=== PATIENT | female | born 1995 | race African-American/Black ===

== ENCOUNTER 2016-09-05 01:45 | Emergency (ER) | payer SELFPAY ==
[~2016-09-05 01:45] MED LIST: MEDR150D3 IM; NAPR500T PO; PRED20TA PO; TRAM-29 PO; [UNRECOGNIZED DRUG - CODE] PO
[2016-09-05 01:56] VITALS: BP 142/73
[2016-09-05] MEDS ORDERED: ALBUTEROL SULFATE 8GM INHALER. INH ONE (02:30)
--- NOTE | 2016-09-05 05:42 | ED.ADGEN ---
Past History Past Medical History: Asthma Past Surgical History: No Surgical History Smoking: Non-smoker Alcohol Use: None Drug Use: None Adult General HPI HPI Patient is a 21-year-old female presents emergency department complaining of a four-day history of nonproductive cough. She has had a few episodes of posttussive emesis. She also complains of congestion. She denies any fever or chills. Has been taking nothing for her symptoms. Review of Systems Review of Systems Constitutional: Denies fever or chills [] Eyes: Denies change in visual acuity, redness, or eye pain [] HENT: Denies nasal congestion or sore throat [] Respiratory: Denies cough or shortness of breath [] Cardiovascular: No additional information not addressed in HPI [] GI: Denies abdominal pain, nausea, vomiting, bloody stools or diarrhea [] : Denies dysuria or hematuria [] Musculoskeletal: Denies back pain or joint pain [] Integument: Denies rash or skin lesions [] Neurologic: Denies headache, focal weakness or sensory changes [] Endocrine: Denies polyuria or polydipsia [] Current Medications Current Medications Current Medications Medications (Trade) Dose Ordered Sig/Jose Start Time Stop Time Status Last Admin Dose Admin Albuterol Sulfate (Ventolin Hfa) 1 puff 1X ONCE 09/05/16 02:30 09/05/16 02:30 DC 09/05/16 02:12 1 PUFF Allergies Allergies Allergies Coded Allergies Type Severity Reaction Last Updated Verified shellfish derived Allergy Intermediate 11/16/13 Yes Physical Exam Physical Exam Constitutional: Well developed, well nourished, no acute distress, non-toxic appearance. [] HENT: Normocephalic, atraumatic, bilateral external ears normal, oropharynx moist, no oral exudates, nose normal. [] Eyes: PERRLA, EOMI, conjunctiva normal, no discharge. [] Neck: Normal range of motion, no tenderness, supple, no stridor. [] Cardiovascular:Heart rate regular rhythm, no murmur [] Lungs & Thorax: Bilateral breath sounds clear to auscultation [] Abdomen: Bowel sounds normal, soft, no tenderness, no masses, no pulsatile masses. [] Skin: Warm, dry, no erythema, no rash. [] Back: No tenderness, no CVA tenderness. [] Extremities: No tenderness, no cyanosis, no clubbing, ROM intact, no edema. [] Neurologic: Alert and oriented X 3, normal motor function, normal sensory function, no focal deficits noted. [] Psychologic: Affect normal, judgement normal, mood normal. [] Current Patient Data Vital Signs Vital Signs Date Time Temp Pulse Resp B/P Pulse Ox O2 Delivery O2 Flow Rate FiO2 09/05/16 01:56 98.3 90 20 98 Room Air EKG EKG [] Radiology/Procedures Radiology/Procedures [] Course & Med Decision Making Course & Med Decision Making Pertinent Labs and Imaging studies reviewed. (See chart for details) Patient had an upper respiratory infection. She was counseled on supportive care measures. Given a refill for her inhaler. [] Final Impression Final Impression Upper respiratory infection [] Problems: Dragon Disclaimer Dragon Disclaimer This chart was dictated in whole or in part using Voice Recognition software in a busy, high-work load, and often noisy Emergency Department environment. It may contain unintended and wholly unrecognized errors or omissions. SUZI PANDEY MD Sep 05, 2016 05:42
== END 2016-09-05 02:17 | disposition home or self-care (01) ==
LOC: ER 01:45
DX: J06.9 Acute upper respiratory infection, unspecified (principal); J45.909 Unspecified asthma, uncomplicated; Z91.013 Allergy to seafood
CPT/HCPCS: 94640; 99283; J7613

== ENCOUNTER 2018-01-21 15:30 | Emergency (ER) | payer SELFPAY ==
[~2018-01-21] VITALS: Ht 162.6 cm; Wt 93.0 kg
[~2018-01-21 15:30] MED LIST changes: +NAPR-683 PO; -NAPR500T PO; -TRAM-29 PO; +TRAM-48 PO
--- NOTE | 2018-01-21 15:49 | PHYS DOC ---
Past History Past Medical History: Asthma Past Surgical History: No Surgical History Smoking: Non-smoker Alcohol Use: None Drug Use: None Adult General Chief Complaint Chief Complaint: LOWER EXTREMITY EDEMA HPI HPI Patient is a 22-year-old female who presents to the emergency department for 2 weeks' duration of bilateral lower extremity swelling, primarily in her ankles. She has not had any calf pain or swelling proximal to her ankles. She denies any chest pain or shortness of breath. She states her LMP was several months ago she is on Depo-Provera and she has not easily been . She denies any recent travel, surgery, or immobilization. She denies any pleuritic chest pain. She denies any dizziness, lightheadedness, or fever. Her swelling and discomfort in her ankles bilaterally. There are no alleviating, or exacerbating factors to her symptoms. She denies any recent tick bites or other exposures. She denies any recent injuries. Review of Systems Review of Systems Constitutional: Denies fever or chills [] Eyes: Denies change in visual acuity, redness, or eye pain [] HENT: Denies nasal congestion or sore throat [] Respiratory: Denies cough or shortness of breath [] Cardiovascular: The patient denies any shortness of breath, chest pain, palpitations, or orthopnea [] GI: Denies abdominal pain, nausea, vomiting, bloody stools or diarrhea [] : Denies dysuria or hematuria [] Musculoskeletal: Denies back pain or joint pain [] Integument: Denies rash or skin lesions [] Neurologic: Denies headache, focal weakness or sensory changes [] Endocrine: Denies polyuria or polydipsia [] All other systems were reviewed and found to be within normal limits, except as documented in this note. Allergies Allergies Allergies Coded Allergies Type Severity Reaction Last Updated Verified shellfish derived Allergy Intermediate 11/16/13 Yes Physical Exam Physical Exam PHYSICAL EXAM: CONSTITUTIONAL: Well developed, well nourished HEAD: normocephalic, atraumatic EENT: PERRL, EOMI. Conjunctivae normal color, sclerae non-icteric; moist mucous membranes. NECK: Supple, non-tender; no meningismus. LUNGS: Lungs CTA, breathing even and unlabored. Normal air movement. HEART: Regular rate and rhythm, no murmur CHEST: No deformity; non-tender ABDOMEN: The abdomen is soft, and non-tender, no masses or bruits. EXTREM: Normal ROM; no deformity, no calf tenderness. Normal pulses palpable in all extremities. There is trace nonpitting bilateral pedal edema, primarily in the ankles bilaterally. There is no warmth or erythema. SKIN: No rash; no diaphoresis NEURO: Alert; normal speech and cognition; CN's grossly intact; strength grossly intact without focal deficit. BACK: No CVA TTP. EKG EKG [Normal sinus rhythm with a normal rate, normal axis, normal intervals, there are no acute ischemic ST/T changes.] Radiology/Procedures Radiology/Procedures [] Course & Med Decision Making Course & Med Decision Making Pertinent Labs and Imaging studies reviewed. (See chart for details) [5:50 PM: Patient remains stable. I discussed test results, the need for close follow-up, and return precautions. I discussed using compression stockings and elevation. A short course of Lasix will be given. The importance of close follow -up for further outpatient evaluation was stressed] Dragon Disclaimer Dragon Disclaimer This electronic medical record was generated, in whole or in part, using a voice recognition dictation system. Departure Departure: Impression: Primary Impression: Pedal edema Disposition: HOME, SELF-CARE Condition: STABLE Referrals: PCP,NO (PCP) Patient Instructions: Edema Scripts Furosemide (LASIX) 40 Mg Tablet 40 MG PO DAILY for 10 Days, #10 TAB Prov: SUZI COLBERT MD 01/21/18 SUZI COLBERT MD Jan 21, 2018 15:48
[2018-01-21 16:23] LABS: PREG TEST PT QUAL NEGATIVE (NEG)
--- NOTE | 2018-01-21 16:23 | EKG ---
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
--- NOTE | 2018-01-21 16:45 | RAD ---
Chest, PA and Lateral: Technique: PA and lateral views of the chest were obtained. History: Cough. Comparison: None. Findings: The heart and pulmonary vasculature appear within normal limits. The lungs are clear. The pleural margins are clear. Impression: No acute chest process is seen. Electronically signed by: David Velarde MD (01/21/2018 4:41 PM) [id number]
[2018-01-21 17:31] LABS: BASO % 1 % (0-3); EOS # 0.6 x10^3/uL (0.0-0.7); EOS % 7 % (0-3); HEMATOCRIT 38.7 % (36.0-47.0); HEMOGLOBIN 12.9 g/dL (12.0-15.5); LYMPH # 3.1 x10^3/uL (1.0-4.8); LYMPH % 38 % (24-48); MEAN CORPUSCULAR HEMOGLOBIN 28 pg (25-35); MEAN CORPUSCULAR HGB CONC 33 g/dL (31-37); MEAN CORPUSCULAR VOLUME 83 fL (79-100); MONO # 0.7 x10^3/uL (0.0-1.1); MONO % 8 % (0-9); NEUT # 3.7 x10^3uL (1.8-7.7); NEUT % 46 % (31-73); PLATELET COUNT 282 x10^3/uL (140-400); RED BLOOD COUNT 4.68 x10^6/uL (3.50-5.40); RED CELL DISTRIBUTION WIDTH 13.3 % (11.5-14.5); WHITE BLOOD COUNT 8.1 x10^3/uL (4.0-11.0)
[2018-01-21 17:49] LABS: ALBUMIN 3.8 g/dL (3.4-5.0); ALBUMIN/GLOBULIN RATIO 1.1 (1.0-1.7); CREATININE 0.8 mg/dL (0.6-1.0); GFR 106.6; POTASSIUM 3.6 mmol/L (3.5-5.1); TOTAL BILIRUBIN 0.4 mg/dL (0.2-1.0); TOTAL PROTEIN 7.4 g/dL (6.4-8.2)
[2018-01-21] MEDS ORDERED: FURO-68 PO (17:53)
[2018-01-21 18:00] VITALS: BP 141/62
== END 2018-01-21 18:05 | disposition home or self-care (01) ==
LOC: ER 15:30
DX: R60.0 Localized edema (principal); J45.909 Unspecified asthma, uncomplicated; Z91.013 Allergy to seafood
CPT/HCPCS: 36415; 71046; 80053; 83880; 84703; 85025; 85379; 93005; 99285-25

== ENCOUNTER 2018-08-22 11:12 | Emergency (ER) | payer SELFPAY ==
[~2018-08-22] VITALS: Ht 162.6 cm; Wt 88.9 kg
[~2018-08-22 11:12] MED LIST changes: +FURO-68 PO
[2018-08-22] MEDS ORDERED: IV NORMAL SALINE 1,000ML 1,000 ML IV SCH (11:30)
[2018-08-22] MEDS ORDERED: ONDANSETRON PF 4 MG/2 ML VIAL. IV ONE (11:30)
[2018-08-22 12:16] LABS: BASO % 1 % (0-3); EOS # 0.2 x10^3/uL (0.0-0.7); EOS % 3 % (0-3); HEMOGLOBIN 12.8 g/dL (12.0-15.5); LYMPH # 1.3 x10^3/uL (1.0-4.8); LYMPH % 20 % (24-48); MEAN CORPUSCULAR HEMOGLOBIN 28 pg (25-35); MEAN CORPUSCULAR HGB CONC 34 g/dL (31-37); MEAN CORPUSCULAR VOLUME 83 fL (79-100); MONO # 0.6 x10^3/uL (0.0-1.1); MONO % 10 % (0-9); NEUT # 4.4 x10^3uL (1.8-7.7); NEUT % 67 % (31-73); PLATELET COUNT 286 x10^3/uL (140-400); RED BLOOD COUNT 4.56 x10^6/uL (3.50-5.40); WHITE BLOOD COUNT 6.6 x10^3/uL (4.0-11.0)
--- NOTE | 2018-08-22 12:37 | PHYS DOC ---
Past History Past Medical History: Asthma Past Surgical History: No Surgical History Smoking: Non-smoker Alcohol Use: None Drug Use: None Adult General Chief Complaint Chief Complaint: Nausea and vomiting and diarrhea HPI HPI Patient is a 23 year old female who presents with appearing of nausea and vomiting and diarrhea since this morning. Patient complaining of 3 episodes of vomiting and 5 episodes of diarrhea since 7:30 today with cramping abdominal pain during episodes of diarrhea and vomiting. Patient also complaining of headache and rated her pain 10 over 10 without history of migraine headache. Patient denies sick contact, urinary symptom, fever and chills. Review of Systems Review of Systems Constitutional: Denies fever or chills [] Eyes: Denies change in visual acuity, redness, or eye pain [] HENT: Denies nasal congestion or sore throat [] Respiratory: Denies cough or shortness of breath [] Cardiovascular: No additional information not addressed in HPI [] GI: Reports abdominal pain, nausea, vomiting, diarrhea [] : Denies dysuria or hematuria [] Musculoskeletal: Denies back pain or joint pain [] Integument: Denies rash or skin lesions [] Neurologic: Reports headache, denies focal weakness or sensory changes [] Endocrine: Denies polyuria or polydipsia [] All other systems were reviewed and found to be within normal limits, except as documented in this note. Current Medications Current Medications Current Medications Medications (Trade) Dose Ordered Sig/Jose Start Time Stop Time Status Last Admin Dose Admin Ondansetron HCl (Zofran) 4 mg 1X ONCE 08/22/18 11:30 08/22/18 11:33 DC 08/22/18 11:57 4 MG Sodium Chloride 1,000 ml @ 1,000 mls/hr Q1H 08/22/18 11:30 08/22/18 12:29 DC 08/22/18 11:57 1,000 MLS/HR Allergies Allergies Allergies Coded Allergies Type Severity Reaction Last Updated Verified shellfish derived Allergy Intermediate 11/16/13 Yes Physical Exam Physical Exam Constitutional: Well developed, well nourished, mild distress, non-toxic appearance. [] HENT: Normocephalic, atraumatic, oropharynx dry, no oral exudates, nose normal. [] Eyes: PERRLA, EOMI, conjunctiva normal, no discharge. [] Neck: Normal range of motion, no tenderness, supple, no stridor, no meningeal sign. [] Cardiovascular:Heart rate regular rhythm, no murmur [] Lungs & Thorax: Bilateral breath sounds clear to auscultation [] Abdomen: Bowel sounds normal, soft, no tenderness, no masses, no pulsatile masses. [] Skin: Warm, dry, no erythema, no rash. [] Back: No tenderness, no CVA tenderness. [] Extremities: No tenderness, no cyanosis, no clubbing, ROM intact, no edema. [] Neurologic: Alert and oriented X 3, normal motor function, normal sensory function, no focal deficits noted. [] Psychologic: Affect normal, judgement normal, mood normal. [] Current Patient Data Lab Results Laboratory Tests Test 08/22/18 11:50 White Blood Count 6.6 x10^3/uL (4.0-11.0) Red Blood Count 4.56 x10^6/uL (3.50-5.40) Hemoglobin 12.8 g/dL (12.0-15.5) Hematocrit 38.0 % (36.0-47.0) Mean Corpuscular Volume 83 fL (79-100) Mean Corpuscular Hemoglobin 28 pg (25-35) Mean Corpuscular Hemoglobin Concent 34 g/dL (31-37) Red Cell Distribution Width 14.0 % (11.5-14.5) Platelet Count 286 x10^3/uL (140-400) Neutrophils (%) (Auto) 67 % (31-73) Lymphocytes (%) (Auto) 20 % (24-48) L Monocytes (%) (Auto) 10 % (0-9) H Eosinophils (%) (Auto) 3 % (0-3) Basophils (%) (Auto) 1 % (0-3) Neutrophils # (Auto) 4.4 x10^3uL (1.8-7.7) Lymphocytes # (Auto) 1.3 x10^3/uL (1.0-4.8) Monocytes # (Auto) 0.6 x10^3/uL (0.0-1.1) Eosinophils # (Auto) 0.2 x10^3/uL (0.0-0.7) Basophils # (Auto) 0.0 x10^3/uL (0.0-0.2) EKG EKG [] Radiology/Procedures Radiology/Procedures [] Course & Med Decision Making Course & Med Decision Making Pertinent Labs reviewed. (See chart for details) discharge: I've spoken with the patient and/or caregivers. I've explained the patient's condition, diagnosis and treatment plan based on information available to me at this time. I've answered the patient's and/or caregivers questions and addressed any concerns. The patient and/or caregivers have a good understanding the patient's diagnosis, condition and treatment plan as can be expected at this point. Vital signs have been stabilized. The patient's condition is stable for discharge from the emergency department. The patient will pursue further outpatient evaluation with her primary care provider or other designated consulting physician as outlined in the discharge instructions. Patient and/or caregivers are agreeable to this plan of care and follow-up instructions have been explained in detail. The patient and/or caregivers have received these instructions in written format and expressed understanding of these discharge instructions. The patient and her caregivers are aware that if any significant change in condition or worsening of symptoms should prompt him to immediately return to this of the closest emergency department. If an emergent department is not readily available I would encourage him to call 911. Brian Disclaimer Dragon Disclaimer This electronic medical record was generated, in whole or in part, using a voice recognition dictation system. Departure Departure: Impression: Primary Impression: Acute gastroenteritis Additional Impressions: Urinary tract infection Headache Disposition: HOME, SELF-CARE (at 1345) Condition: IMPROVED Referrals: PCP,NO (PCP) Patient Instructions: General Headache Without Cause, Urinary Tract Infection, Viral Gastroenteritis Additional Instructions: Drink plenty of liquids Follow-up with your primary care physician in 3-5 days Return to ER if not getting better Do not take solid foods today Scripts Ondansetron Hcl (ZOFRAN) 4 Mg Tablet 1 TAB PO Q6HRS for nausea and vomiting, #12 TAB Prov: TAN ANTHONY MD 08/22/18 Naproxen (NAPROSYN) 500 Mg Tablet 500 MG PO BID for pain, #14 TAB Prov: TAN ANTHONY MD 08/22/18 Ciprofloxacin Hcl (CIPRO) 250 Mg Tablet 1 TAB PO BID for urinary tract infection, #6 TAB Prov: TAN ANTHONY MD 08/22/18 Problem Qualifiers TAN ANTHONY MD Aug 22, 2018 12:37
[2018-08-22 12:45] LABS: BACTERIA,URINE MOD /HPF (0-FEW); BILIRUBIN,URINE NEG (NEG); CLARITY,URINE TURBID; COLOR,URINE YELLOW; GLUCOSE,URINE NEG (NEG); NITRITE,URINE NEG (NEG); UROBILINOGEN,URINE 1 mg/dL (0.2 mg/dL); WBC,URINE >40 /HPF (0-4)
[2018-08-22 12:46] LABS: SQUAMOUS EPITHELIAL CELL,UR MOD /LPF
[2018-08-22 12:47] LABS: U PREG PATIENT NEGATIVE (NEG)
[2018-08-22 13:32] LABS: ALBUMIN 3.2 g/dL (3.4-5.0); ALBUMIN/GLOBULIN RATIO 0.9 (1.0-1.7); CALCIUM 8.2 mg/dL (8.5-10.1); CREATININE 0.8 mg/dL (0.6-1.0); GFR 105.8; POTASSIUM 3.9 mmol/L (3.5-5.1); TOTAL BILIRUBIN 0.3 mg/dL (0.2-1.0); TOTAL PROTEIN 6.8 g/dL (6.4-8.2)
[2018-08-22] MEDS ORDERED: CIPR250T30 PO (13:41)
[2018-08-22] MEDS ORDERED: NAPR-683 PO (13:41)
[2018-08-22] MEDS ORDERED: ONDA4TAB7 PO (13:41)
[2018-08-22] MEDS ORDERED: IV NORMAL SALINE 50ML 50 ML ONE (13:43)
[2018-08-22] MEDS ORDERED: cefTRIAXone SODIUM 1 GM VIAL IV ONE (13:43)
[2018-08-22] MEDS ORDERED: KETOROLAC 30 MG/ML VIAL. IV ONE (13:45)
[2018-08-22 14:30] VITALS: BP 153/96
== END 2018-08-22 14:31 | disposition home or self-care (01) ==
LOC: ER 11:12
DX: K52.9 Noninfective gastroenteritis and colitis, unspecified (principal); N39.0 Urinary tract infection, site not specified; R51 Headache; J45.909 Unspecified asthma, uncomplicated; Z91.013 Allergy to seafood
CPT/HCPCS: 36415; 80053; 81001; 81025; 83690; 85025; 87086; 96361; 96374; 96375; 99283; J0696; J1885; J2405; J7030

== ENCOUNTER 2020-08-06 13:47 | Emergency (ER) | payer SELFPAY ==
[~2020-08-06] VITALS: Ht 160 cm; Wt 88.7 kg
[2020-08-06 13:47] VITALS: BP 127/80
[~2020-08-06 13:47] MED LIST changes: +CIPR250T30 PO; +ONDA4TAB7 PO
--- NOTE | 2020-08-06 13:53 | PHYS DOC ---
Past History Past Medical History: Asthma Past Surgical History: No Surgical History Smoking: Non-smoker Alcohol Use: None Drug Use: None Adult General Chief Complaint Chief Complaint: ABDOMINAL PAIN [facility] HPI Patient is a 25-year-old female who presents via EMS for abdominal pain. Was reportedly found outside her residence by local Police Department and was complaining of abdominal pain when EMS was called to scene for evaluation. Nicholas lema was found to be tachycardic but otherwise hemodynamically stable and in obvious pain given epigastric abdominal pain. Because of this, patient was subsequently transported to our ER for evaluation. On arrival, patient remains tachycardic. Admits epigastric and periumbilical pain which is consistent with prior episodes of acute gastritis. She has known ulcers and states pain feels similar to prior episodes. She also admits radiating left flank pain into her groin and dysuria which is new. Denies any prior abdominal surgeries. No recent fever, febrile illness, known sick contacts or travel, no COVID-19 exposure, no chest pain, shortness of breath, changes in bowel function, changes in motor or sensory function. Patient does admit to drinking " not even 1 full wine cooler" last night Further history elicited after patient's anxiety improved. Reports she was in fact getting pulled over by local Police Department when she got into a verbal altercation with officer given the fact that she has active warrant out for her arrest. She reports after said verbal argument she started experiencing abdominal pain, states she often has" stomach spasms" and other abdominal issues after such altercations. Patient is asking us to not disclose any identifying information to police department such as her name and birthdate Review of Systems Review of Systems Fourteen body systems of review of systems have been reviewed. See HPI for pertinent positives and negative responses, other schwarz all other systems are negative, non-pertinent or non-contributory Allergies Allergies Allergies Coded Allergies Type Severity Reaction Last Updated Verified shellfish derived Allergy Intermediate 11/16/13 Yes Physical Exam Physical Exam Constitutional: Well developed, well nourished, moderate distress due to pain, non-toxic appearance. Poor hygiene, covered in leaves HENT: Normocephalic, atraumatic, bilateral external ears normal, oropharynx moist, no oral exudates, nose normal. Eyes: PERRLA, EOMI, conjunctiva normal, no discharge. Neck: Normal range of motion, no tenderness, supple, no stridor. Cardiovascular: Heart rate tachycardic, sinus rhythm, no murmurs rubs or gallops Lungs & Thorax: Bilateral breath sounds clear to auscultation Abdomen: Bowel sounds normal, soft, generalized tenderness most focal to epigastric area without guarding or rebound, no masses, no pulsatile masses. Nonsurgical abdomen, no peritoneal signs Skin: Warm, dry, no erythema, no rash. Back: No tenderness, no CVA tenderness. Extremities: No tenderness, no cyanosis, no clubbing, ROM intact, no edema. Neurologic: Alert and oriented X 3, grossly normal motor & sensory function, no focal deficits noted. Psychologic: Anxious affect, judgement normal, mood normal. EKG EKG EKG ordered and interpreted by myself at 1417 hrs. as sinus rhythm at 93 bpm, unremarkable intervals, no axis deviation, incomplete right bundle branch block, no ischemic findings, no STEMI Radiology/Procedures Radiology/Procedures [] Heart Score HEART Score for Chest Pain: HEART Score for Chest Pain Response (Comments) Value History Slighlty/Non-Suspicious 0 ECG Normal 0 Age < 45 0 Risk Factors 1 or 2 Risk Factors 1 Troponin < Normal Limit 0 Total 1 Risk Factors: Risk Factors: DM, Current or recent (<one month) smoker, HTN, HLP, family history of CAD, obesity. Risk Scores: Risk Factors: DM, Current or recent (<one month) smoker, HTN, HLP, family history of CAD, obesity. Course & Med Decision Making Course & Med Decision Making Discussed with the patient all findings and diagnostic testing. I discussed most likely diagnosis of gastritis versus other atypical nonemergent abdominal pain that came on as a result of verbal altercation with police officers. In addition, patient found to be hypokalemic, she was given potassium supplementation today and will be prescribed short-term potassium supplementation and recommendations for laboratory redraw in outpatient setting with PCP. I stressed need for close outpatient follow-up to review today's ER visit. Strict return precautions were also discussed at length with good understanding by patient. Patient voiced understanding and agreement with the plan. Patient knows to come back for repeat evaluation if concerning signs or symptoms present prior to outpatient follow-up. Hemodynamically stable, ambulatory and well-appearing at time of disposition. Dragon Disclaimer Dragon Disclaimer This electronic medical record was generated, in whole or in part, using a voice recognition dictation system. Departure Departure: Impression: Primary Impression: Nonspecific abdominal pain Disposition: 01 DC HOME SELF CARE/HOMELESS Condition: IMPROVED Referrals: PCP,CLAU (PCP) Patient Instructions: Abdominal Pain (Nonspecific), Gastritis, Adult Additional Instructions: You have been evaluated in the Emergency Department today for abdominal pain. Your evaluation was not suggestive of any emergent condition requiring medical intervention at this time. However, some abdominal problems make take more time to appear. Therefore, it is important for you to watch for any new symptoms or worsening of your current condition. This is likely an exacerbation of your gastritis. I am represcribing Protonix medication which you are to take daily. You have taken in the past with good results As discussed, please use attached list of resources to contact primary care physician of your liking to establish care. You will need repeat evaluation of your abdomen in addition to repeat examination and laboratory draw to monitor your potassium level which was found to be low during your ER visit today. Please take prescribed proton pump inhibitor for your gastritis and discussed need for ongoing management with this in outpatient setting. Return to the Emergency Department if you experience worsening pain, persistent fevers greater than 100.4, recurrent vomiting, blood in vomit, blood in stool, dark tarry stool, chest pain, difficulty breathing, or any other concerning symptoms. Scripts Pantoprazole Sodium (PROTONIX) 40 Mg Tablet.dr 1 TAB PO DAILY for GASTRITIS, #30 TAB 5 Refills Prov: ALEXANDRIA BACON DO 08/06/20 Potassium Chloride (POTASSIUM CHLORIDE ) 20 Meq Tablet.er 20 MEQ PO DAILY for SUPPLEMENT for 7 Days, #7 TAB Prov: ALEXANDRIA BACON DO 08/06/20 ALEXANDRIA BACON DO Aug 06, 2020 13:53
[2020-08-06] MEDS ORDERED: PANTOPRAZOLE IV 40 MG VIAL. IVP ONE (14:00)
[2020-08-06] MEDS ORDERED: IV NORMAL SALINE 1,000ML 1,000 ML IV SCH (14:00)
[2020-08-06 14:11] LABS: BASO % 0 % (0-3); EOS # 0.1 x10^3/uL (0.0-0.7); EOS % 1 % (0-3); HEMATOCRIT 33.9 % (36.0-47.0); HEMOGLOBIN 10.7 g/dL (12.0-15.5); LYMPH # 2.5 x10^3/uL (1.0-4.8); LYMPH % 25 % (24-48); MEAN CORPUSCULAR HEMOGLOBIN 25 pg (25-35); MEAN CORPUSCULAR HGB CONC 32 g/dL (31-37); MEAN CORPUSCULAR VOLUME 79 fL (79-100); MONO # 0.7 x10^3/uL (0.0-1.1); MONO % 7 % (0-9); NEUT # 6.9 x10^3uL (1.8-7.7); NEUT % 67 % (31-73); PLATELET COUNT 304 x10^3/uL (140-400); RED BLOOD COUNT 4.27 x10^6/uL (3.50-5.40); RED CELL DISTRIBUTION WIDTH 18.2 % (11.5-14.5); WHITE BLOOD COUNT 10.4 x10^3/uL (4.0-11.0)
[2020-08-06] MEDS ORDERED: MORPHINE SULFATE 4 MG/ML DISP.SYRIN. ONE (14:12)
[2020-08-06] MEDS ORDERED: MORPHINE SULFATE 4 MG/ML DISP.SYRIN. IV ONE (14:15)
[2020-08-06 14:26] LABS: ALBUMIN 3.6 g/dL (3.4-5.0); CALCIUM 9.2 mg/dL (8.5-10.1); CREATININE 1.1 mg/dL (0.6-1.0); GFR 72.1; TOTAL BILIRUBIN 0.3 mg/dL (0.2-1.0); TOTAL PROTEIN 7.3 g/dL (6.4-8.2)
[2020-08-06 14:28] LABS: POTASSIUM 2.7 mmol/L (3.5-5.1)
[2020-08-06] MEDS ORDERED: POTASSIUM CHLORIDE 20 MEQ TABLET.ER. PO ONE (14:30)
[2020-08-06] MEDS ORDERED: PANT40TA3 PO (15:27)
[2020-08-06] MEDS ORDERED: POTA20TA4 PO (15:27)
[2020-08-06 15:29] LABS: AMPHETAMINE/METHAMPHETAMINE POS (NEG); BARBITURATES NEG (NEG); BENZODIAZEPINES NEG (NEG); CANNABINOIDS NEG (NEG); COCAINE NEG (NEG); METHADONE NEG (NEG); OPIATES POS (NEG); PHENCYCLIDINE NEG (NEG)
[2020-08-06 15:36] LABS: BACTERIA,URINE MOD /HPF (0-FEW); BILIRUBIN,URINE NEG (NEG); CLARITY,URINE HAZY; COLOR,URINE YELLOW; GLUCOSE,URINE NEG (NEG); NITRITE,URINE POS (NEG); UROBILINOGEN,URINE 0.2 mg/dL (0.2 mg/dL)
[2020-08-06 15:37] LABS: SQUAMOUS EPITHELIAL CELL,UR MOD /LPF
[2020-08-06] MEDS ORDERED: NITR100C62 PO (16:11)
[2020-08-06] MEDS ORDERED: NITROFURANTOIN MONOHYD/M-CRYST 100 MG CAPSULE. PO ONE (16:15)
--- NOTE | 2020-08-06 16:23 | EKG ---
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
== END 2020-08-06 16:48 | disposition home or self-care (01) ==
LOC: ER 13:47
DX: R10.13 Epigastric pain (principal); R10.33 Periumbilical pain; R00.0 Tachycardia, unspecified; J45.909 Unspecified asthma, uncomplicated; Z91.013 Allergy to seafood
CPT/HCPCS: 36415; 80053; 80307; 81001; 81025; 82550; 83690; 83735; 84484; 85025; 87086; 93005; 96361; 96374; 96375; 99284; C9113; J2060; J2270; J7030

== ENCOUNTER 2020-09-17 12:51 | Emergency (ER) | payer SELFPAY ==
[~2020-09-17] VITALS: Ht 160 cm; Wt 97.5 kg
[~2020-09-17 12:51] MED LIST changes: +NITR100C62 PO; +PANT40TA3 PO; +POTA20TA4 PO
--- NOTE | 2020-09-17 13:42 | RAD ---
EXAM: Chest, 2 views. HISTORY: Syncope. COMPARISON: 01/21/2018. FINDINGS: 2 views of the chest are obtained. There is no infiltrate, pleural effusion or pneumothorax . The heart is normal in size. IMPRESSION: No acute pulmonary finding. Electronically signed by: Magaly Howard MD (09/17/2020 1:33 PM) [facility]
[2020-09-17 13:45] VITALS: BP 130/88
[2020-09-17] MEDS ORDERED: SUMAtriptan SUCC 6 MG/0.5 ML VIAL SQ ONE (13:45)
--- NOTE | 2020-09-17 14:14 | RAD ---
CT HEAD INDICATION: headache, syncope COMPARISON: 11/16/2013 Exposure: One or more of the following individualized dose reduction techniques were utilized for thi s examination: 1. Automated exposure control 2. Adjustment of the mA and/or kV according to patient size 3. Use of iterative reconstruction technique TECHNIQUE: 5 mm contiguous axial images were obtained from the skull base to the vertex in both bone and soft tissue algorithm. FINDINGS: No abnormal attenuation within the brain parenchyma. No evidence of acute intracranial hemorrhage. No extra-axial fluid collections. No mass effect or midline shift. Ventricular size is appropriate. Basal cisterns are patent. No fractures identified.Beckford-white differentiation is preserved.Globes and orbits are within normal l imits. Paranasal sinuses and mastoid air cells are clear. IMPRESSION: No acute intracranial findings. Electronically signed by: David Velarde MD (09/17/2020 2:11 PM) [id number]
--- NOTE | 2020-09-17 14:14 | PHYS DOC ---
Past History Past Medical History: Asthma, GERD, Hypertension, Ovarian Cyst Past Surgical History: No Surgical History Smoking: Non-smoker Alcohol Use: Occasionally Drug Use: None Adult General Chief Complaint Chief Complaint: FATIGUE HPI HPI Patient is a 25-year-old female with past medical history of hypertension and presents to the emergency room complaining of 40 days of global headache that is worse in the front. She states that she thought this was due to high blood pressure but was surprised when her blood pressure is normal upon arrival. She states that the pain is worse in the front of her head. She has not had any nausea or vomiting. She felt like she was in a pass out earlier today but did not pass out. She denies any shortness of breath, cough, URI symptoms, fever, chills, sweats. She states she typically only gets headaches with high blood pressure. She has not been taking her medications as she does not have insuranc e. Review of Systems Review of Systems Complete ROS is negative unless otherwise documented in HPI Current Medications Current Medications Current Medications Medications (Trade) Dose Ordered Sig/Jose Start Time Stop Time Status Last Admin Dose Admin Sumatriptan Succinate (Imitrex) 6 mg 1X ONCE 09/17/20 13:45 09/17/20 13:46 DC 09/17/20 13:45 6 MG Allergies Allergies Allergies Coded Allergies Type Severity Reaction Last Updated Verified shellfish derived Allergy Intermediate 11/16/13 Yes Physical Exam Physical Exam General: Awake, alert, NAD. Well Nourished, well hydrated. Cooperative HEENT: Atraumatic, EOMI, PERRL, airway patent, moist oral mucosa Neck: Supple, trachea midline Respiratory: CTA bilaterally, normal effort, no wheezing/crackles CV: RRR, no murmur, cap refill <2 GI: Soft, nondistended, nontender, no masses MSK: No obvious deformities Skin: Warm, dry, intact Neuro: A&O x3, speech NL, 5/5 strength in BUE/BLE distally and proximally, CN 2- 12 intact, cerebellar testing normal Psych: Normal affect, normal mood, not suicidal or homicidal Current Patient Data Vital Signs Vital Signs Date Time Temp Pulse Resp B/P (MAP) Pulse Ox O2 Delivery O2 Flow Rate FiO2 09/17/20 13:45 95 16 130/88 (102) 99 Room Air 09/17/20 12:53 98.7 Lab Results Laboratory Tests Test 09/17/20 13:11 POC Urine HCG, Qualitative hcg negative (Negative) EKG EKG [] Radiology/Procedures Radiology/Procedures [] Heart Score Risk Factors: Risk Factors: DM, Current or recent (<one month) smoker, HTN, HLP, family history of CAD, obesity. Risk Scores: Risk Factors: DM, Current or recent (<one month) smoker, HTN, HLP, family history of CAD, obesity. Course & Med Decision Making Course & Med Decision Making Pertinent Labs and Imaging studies reviewed. (See chart for details) Patient is a 25-year-old female who presents to the emergency room after a presyncopal episode. She has had a headache for the last 4 days. EKG is normal. test is negative. We will do a CT head and chest x-ray to rule out other causes of syncope and headache. Patient has a normal neurologic exam and is overall well-appearing. She was able to ambulate without assistance to the bathroom. CT is unremarkable. Work-up is normal. Patient is feeling significantly better after medication. Patient's test results and vitals while in the ED were fully reviewed and discussed with the patient. Patient is stable and at this time does not need admission to the hospital. We have discussed strict return precautions and the importance of following up with their Primary Care Physician. Patient stated understanding and was given an opportunity to ask any questions. Patient is in agreement with plan. Dragon Disclaimer Dragon Disclaimer This electronic medical record was generated, in whole or in part, using a voice recognition dictation system. Departure Departure: Impression: Primary Impression: Headache Additional Impression: Pre-syncope Disposition: 01 DC HOME SELF CARE/HOMELESS Condition: IMPROVED Referrals: PCP,NO (PCP) Patient Instructions: General Headache Without Cause Scripts Hydrochlorothiazide (HYDROCHLOROTHIAZIDE TABLET) 12.5 Mg Tablet 12.5 MG PO DAILY for DIURETIC for 30 Days, #30 TAB 2 Refills Prov: KULWINDER DOWNEY MD 09/17/20 Problem Qualifiers KULWINDER DOWNEY MD Sep 17, 2020 14:14
[2020-09-17 15:10] LABS: BILIRUBIN,URINE NEG (NEG); CLARITY,URINE CLEAR; COLOR,URINE STRAW; GLUCOSE,URINE NEG (NEG); NITRITE,URINE NEG (NEG); RBC,URINE OCC /HPF (0-2); UROBILINOGEN,URINE 0.2 mg/dL (0.2 mg/dL)
[2020-09-17 15:11] LABS: BACTERIA,URINE 0 /HPF (0-FEW); SQUAMOUS EPITHELIAL CELL,UR MOD /LPF
--- NOTE | 2020-09-17 15:19 | EKG ---
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
[2020-09-17] MEDS ORDERED: HYDR12.58 PO (15:32)
== END 2020-09-17 15:35 | disposition home or self-care (01) ==
LOC: ER 12:51
DX: R51.9 Headache, unspecified (principal); R55 Syncope and collapse; J45.909 Unspecified asthma, uncomplicated; K21.9 Gastro-esophageal reflux disease without esophagitis; I10 Essential (primary) hypertension; Z91.013 Allergy to seafood
CPT/HCPCS: 70450; 71046; 81001; 81025; 87086; 93005; 96372; 99285; J3030

== ENCOUNTER 2020-12-22 17:29 | Emergency (ER) | payer SELFPAY ==
[~2020-12-22] VITALS: Ht 160 cm; Wt 97.5 kg
[2020-12-22 17:29] VITALS: BP 118/67
[~2020-12-22 17:29] MED LIST changes: +HYDR12.58 PO
--- NOTE | 2020-12-22 18:13 | RAD ---
EXAMINATION: XR EXAM OF ANKLE_RIGHT 3VIEWS CLINICAL HISTORY: Right ankle pain following injury TECHNIQUE: XR EXAM OF ANKLE_RIGHT 3VIEWS Number of Images/Views: 3 COMPARISON: None FINDINGS: Joint spaces and alignment maintained. No acute fracture. Tiny posterior calcaneal enthesophyte. No f ocal soft tissue swelling. IMPRESSION: No acute osseous abnormality right ankle. Electronically signed by: Alfredo Olmos DO (12/22/2020 6:10 PM) SORIN
--- NOTE | 2020-12-22 19:27 | PHYS DOC ---
Past History Past Medical History: Asthma, GERD, Hypertension, Ovarian Cyst Past Surgical History: No Surgical History Smoking: Non-smoker Alcohol Use: Occasionally Drug Use: None Adult General Chief Complaint Chief Complaint: ANKLE PROBLEM HPI HPI Patient is a 25-year-old female presents to the emergency department reporting noticing right ankle pain after she tripped and fell down "some steps " this past Friday evening. Patient denied any loss of consciousness from this fall. Patient denies any other physical complaints or physical injuries from this fall. Patient reports her last menstrual cycle was when she was 16 years old, states she is on the Mirena control. Patient denies any allergies to medication states she takes no prescription or [id number] medications at home. Patient states she does not have a primary care physician. Patient denies cigarette smoking, illicit drug use, or alcohol consumption. Review of Systems Review of Systems 14 body systems of review of systems have been reviewed. See HPI for pertinent positives and negative responses, otherwise all other systems are negative, nonpertinent or noncontributory. Allergies Allergies Allergies Coded Allergies Type Severity Reaction Last Updated Verified shellfish derived Allergy Intermediate 11/16/13 Yes Physical Exam Physical Exam Constitutional: Well developed, well nourished, no acute distress, non-toxic al earance. 25-year-old female no apparent distress. HENT: Normocephalic, atraumatic, bilateral external ears normal, oropharynx moist, no oral exudates, nose normal. Eyes: PERRLA, EOMI, conjunctiva normal, no discharge. Neck: Normal range of motion, no tenderness, supple, no stridor. Cardiovascular:Heart rate regular rhythm, no murmur Lungs & Thorax: Bilateral breath sounds clear to auscultation Abdomen: Bowel sounds normal, soft, no tenderness, no masses, no pulsatile masses. Skin: Warm, dry, no erythema, no rash. Back: No tenderness, no CVA tenderness. Extremities: No tenderness, no cyanosis, no clubbing, ROM intact, no edema. Except for right ankle, patient complains of pain to bilateral malleoli are surfaces, no swelling, no crepitus, no deformity appreciated, distal cap refill less than 2 seconds, 2+ dorsalis pedis/posterior tibial pulse. Neurologic: Alert and oriented X 3, normal motor function, normal sensory function, no focal deficits noted. Psychologic: Affect normal, judgement normal, mood normal. Current Patient Data Vital Signs Vital Signs Date Time Temp Pulse Resp B/P (MAP) Pulse Ox O2 Delivery O2 Flow Rate FiO2 12/22/20 17:29 98.1 83 14 118/67 (84) 100 Room Air EKG EKG [] Radiology/Procedures Radiology/Procedures [] Heart Score C/O Chest Pain: No Risk Factors: Risk Factors: DM, Current or recent (<one month) smoker, HTN, HLP, family history of CAD, obesity. Risk Scores: Risk Factors: DM, Current or recent (<one month) smoker, HTN, HLP, family history of CAD, obesity. Course & Med Decision Making Course & Med Decision Making Pertinent Labs and Imaging studies reviewed. (See chart for details) 25-year-old female, vital signs reviewed, presents emergency department with complaints of right ankle pain after a stumble and fall down some steps last Friday night. Physical examination was unremarkable however with patient's complaint of pain and x-ray of the right ankle was ordered. X-ray imaging of right ankle unremarkable, will give patient 1 [place] and 1 600 mg ibuprofen in the ED, Izaiah wrap, ankle stirrup splint. Discussed with patient x-ray findings, discussed RICE therapy with patient. Patient requested a work excuse to return to work on Friday. Patient gave verbal understanding of discharge home instructions, RICE therapy, prescription for Motrin for discomfort, ankle splint use, return to ER precautions or concerns, follow-up with a primary care for ongoing discomfort, patient had no further questions or concerns was discharged home without incident. Dragon Disclaimer Dragon Disclaimer This electronic medical record was generated, in whole or in part, using a voice recognition dictation system. Departure Departure: Impression: Primary Impression: Right ankle pain Disposition: HOME / SELF CARE / HOMELESS Condition: GOOD Referrals: PCP,NO (PCP) ROSIBEL NEWBERRY Patient Instructions: Elastic Bandage and RICE, RICE - Routine Care for Injuries, Splint Care, Icyy-xe-[id number] Additional Instructions: You are seen today in the emergency department for right ankle pain after a fall last Friday. The x-ray imaging was unremarkable did not show any concerning findings that would require immediate attention by an engineering technical specialist. To assist you with pain and discomfort, I have recommended and reviewed with you RICE therapy, Izaiah wrap to the right ankle, ankle stirrup splint for comfort. You have asked for a work excuse, I will have you return back to work Friday morning. Please take this time to rest, ice 30 minutes on and 30 minutes off while awake, use compression and elevation to your right ankle. Please return to the emergency department for worsening symptoms or other concerns. Please follow-up with your primary care physician soon for ongoing pain management care, if you are unable to secure an appointment within a reasonable time, you may use the suggested primary care provider YOUSIF Barnett. EMERGENCY DEPARTMENT GENERAL DISCHARGE INSTRUCTIONS Thank you for coming to [facility] (ED) today and trusting us with you care. We trust that you had a positivie experience in our Emergency Department. If you wish to speak to the department management, you may call the director at [phone]. YOUR FOLLOW UP INSTRUCTIONS ARE FOLLOWS: 1. Do you have a private Doctor? If you do not have a private doctor, please ask for a resource list of physicians or clinics that may be able to assist you with f ollow up care. 2. The Emergency Physician has interpreted your x-rays. The X-Ray specialist will also review them. If there is a change in the findings, you will be notified in 48 hours when at all possible. 3. A lab test or culture has been done, your results will be reviewed and you will be notified if you need a change in treatment. ADDITIONAL INSTRUCTIONS AND INFORMATION: 1. Your care today has been supervised by a physician who is specially trained in emergency care. Many problems require more than one evaluation for a complete diagnosis and treatment. We recommend that you schedule your follow up appointment as recommended to ensure complete treatment of you illness or injury. If you are unable to obtain follow up care and continue to have a problem, or if your condition worsens, we recommend that you return to the ED. 2. We are not able to safely determine your condition over the phone nor are we able to give sound medical advice over the phone. For these safety reasons, if you call for medical advice we will ask you to come to the ED for further evaluation. 3. If you have any questions regarding these discharge instructions please call the ED at [phone]. SAFETY INFORMATION: In the interest of safety, wellness, and injury prevention; we encourage you to wear your sealbelt, if you smoke; quite smoking, and we encourage family to use a protect madyson helmet for bicycling and other sporting events that present an increased risk for head injury. IF YOUR SYMPTOMS WORSEN OR NEW SYMPTOMS DEVELOP, OR YOU HAVE CONCERNS ABOUT YOUR CONDITION; OR IF YOUR CONDITION WORSENS WHILE YOU ARE WAITING FOR YOUR FOLLOW UP APPOINTMENT; EITHER CONTACT YOUR PRIMARY CARE DOCTOR, THE PHYSICIAN WHOSE NAME AND NUMBER YOU WERE GIVEN, OR RETURN TO THE ED IMMEDIATELY. Scripts Ibuprofen (IBUPROFEN) 600 Mg Tablet 600 MG PO TID PRN PRN for PAIN, #20 TAB 0 Refills Prov: LAILA BERNSTEIN APRN 12/22/20 Problem Qualifiers Primary Impression: Right ankle pain Chronicity: acute Qualified Codes: M25.571 - Pain in right ankle and joints of right foot LAILA BERNSTEIN APRN December 22, 2020 19:27
[2020-12-22] MEDS: HYDROcodone/APAP 5/325MG 1 TAB TABLET PO ONE (19:31)
[2020-12-22] MEDS: IBUPROFEN 600 MG TABLET. PO ONE (19:31)
[2020-12-22] MEDS ORDERED: IBUP600T16 PO (19:40)
== END 2020-12-22 20:00 | disposition home or self-care (01) ==
LOC: ER 17:29
DX: M25.571 Pain in right ankle and joints of right foot (principal); Z91.013 Allergy to seafood; W01.0XXA Fall on same level from slipping, tripping and stumbling without subsequent striking against object, initial encounter; Y93.89 Activity, other specified; Y92.89 Other specified places as the place of occurrence of the external cause; Y99.8 Other external cause status
CPT/HCPCS: 29515; 73610; 99283-25